=== PATIENT | female | born 1985 | race Caucasian/White ===

== ENCOUNTER 2016-12-03 12:57 | Emergency (ER) | payer BC ==
[2016-12-03 13:26] LABS: Urine Bilirubin Negative (NEGATIVE); Urine Blood Negative /ul (NEGATIVE); Urine Ketone Negative (NEGATIVE); Urine Nitrite Negative (NEGATIVE); Urine Protein Negative (NEGATIVE); Urine Specific Gravity 1.015 SP.GR. (1.005-1.010); Urine Urobilinogen Normal (NORMAL)
[2016-12-03 13:37] LABS: Hematocrit 37.9 % (37.0-47.0); Hemoglobin 12.5 gm/dL (12.5-16.0); Mean Cell Volume 93.8 fl (78-100); Mean Corpuscular Hemoglobin 30.9 pg (27-31); Mean Platelet Volume 9.3 fl (6.0-9.5); Neutrophil # 4.1 K/mm3 (1.3-6.0); Neutrophil % 58.2 % (42-75.0); Platelet Count 375 K/mm3 (150-450); Red Blood Count 4.04 M/mm3 (4.2-5.4); Red Cell Distribution Width 13.8 % (11.5-14.0); White Blood Count 7.1 K/mm3 (4.0-10.5)
[2016-12-03 13:42] LABS: Albumin * 3.9 gm/dl (3.4-5.0); Anion Gap 10.7 mmol/L (6.8-13.8); BUN/Creatinine Ratio 14.1 (9.0-21.6); Bilirubin, Total 0.4 mg/dL (0.0-1.1); Ca. Corrected For Albumin 8.8 mg/dL (8.4-10.2); Potassium 3.7 mmol/L (3.4-4.6); Total Protein 7.4 gm/dL (6.2-8.2)
[2016-12-03 13:43] LABS: Urine Appearance Clear; Urine Bacteria None Seen; Urine Color Yellow; Urine RBC None Seen /hpf (0-5); Urine WBC None Seen /hpf (0-5)
[2016-12-03] MEDS ORDERED: KETOROLAC TROMETHAMINE 30 MG/ML VIAL IV ONE (13:58)
[2016-12-03] MEDS ORDERED: DIATRIZOATE MEGLU/DIATRIZO SOD 30 ML BTL PO ONE (13:58)
[2016-12-03] MEDS ORDERED: ONDANSETRON HCL/PF 2 MG/ML VIAL IV ONE (13:58)
--- NOTE | 2016-12-03 14:01 | ERNOTE ---
Abdominal HPI - General Chief Complaint: Abdominal Pain Time Seen by Provider: 12/03/16 13:47 Source: patient Exam Limitations: no limitations - Immun/Allergies/Home Medications Immunizatons: IMMUNIZATION HX Immunizations Up to Date Yes Allergies/Adverse Reactions: Allergies No Known Allergies Allergy (Verified 12/03/16 13:08) Home Medications: HOME MEDICATIONS HYDROcodone/ACETAMINOPHEN [[place] 5-325] 1 tab PO Q4H PRN #20 tab 12/03/16 [Last Taken Unknown] - History of Present Illness Narrative: Patient was well till 20:00 yesterday when she started to have sudden severe abdominal pain. She was seen in [facility] ER, had labs and a Xray day and was discharged. The pain has not subsided and she is here for a second opinion. she has been nauseated and gagging but has not brought anything up, normal BM daily , no vaginal or urinary symptoms, same sexual partner for eight years, LMP 11/19 shorter and heavier Date (Duration): 12/02/16 Time (Timing): 20:00 Timing: constant Quality: moderate, aching Activities at Onset: none Modifying Factors - (Worsens): Present: breathing, coughing, movement Associated Symptoms: Present: nausea Prior Treatment: Present: recently seen. Absent: currently on antibiotics Review of Systems - Review of Systems Constitutional: Absent: recent illness, fever, chills ENT: Absent: nose congestion, sore throat Respiratory: Absent: shortness of breath Cardiology: Absent: chest pain Gastrointestinal/Abdominal: Present: See HPI Genitourinary: Present: no symptoms reported Musculoskeletal: Present: back pain - low back pain Neurological: Absent: headache - Patient's Past Medical History Patient History - Medical: No pertinent hx Patient History - Cardiac/Respiratory: No pertinent hx Patient History - Cancer: No Hx of Cancer Patient History - Surgical Procedures: No surgical history Patient History - Other: None LMP (females 10-50): other - Social History Living Situations: spouse Psych History: No pertinent hx Smoking Status: Current every day smoker Alcohol Use: none Drug Use: none - Immunizations Immunizations Up to Date: Yes Physical Exam - Physical Exam General Appearance: Present: wd/wn, alert, no apparent distress, anxious Ears, Nose, Throat: Present: other - poor dentition Respiratory: Present: no respiratory distress, normal breath sounds, no accessory muscle use, chest nontender, lungs clear Cardiovascular/Chest: Present: regular rate, rhythm, no murmur Gastrointestinal/Abdominal: Present: normal bowel sounds, nondistended, soft, tenderness - right lower quadrant and upper abdomen across. Absent: guarding, rebound Back Exam: Present: normal inspection Extremity Exam: Present: no edema Neurological Exam: Present: alert, oriented, normal mood/affect Skin Exam: Present: normal color, warm/dry ED Progress - Results and Orders Patient's Lab Results:: I have reviewed the patient's lab results. - Vital Signs Patient's Vital Signs:: I have reviewed the patient's vital signs. Vital Signs: Vital Signs 12/03/16 13:02 Temperature 37.2 C Pulse Rate 84 Respiratory 18 Rate Blood Pressure 106/77 O2 Sat by Pulse 99 Oximetry - CT/Ultrasound CT/Ultrasound Narrative: CT abdomen/pelvis:normal appendix, right sided ovarian cyst - Progress/Reassessment Chief Complaint: Abdominal Pain Progress Note-Subjective: 12/03/16 14:32 reviewed chart from [facility] 12/03/16 15:04 pain better after toradol, tolerating po contrast 12/03/16 16:42 pain not resolved but tolerable Departure - Departure Clinical Impression: Ovarian cyst Disposition: Home self-care Condition: Good Instructions: Ovarian Cyst, [id number] Additional Instructions: call your doctor back home for follow up Prescriptions: HYDROcodone/ACETAMINOPHEN [[place] 5-325] 1 tab PO Q4H PRN #20 tab PRN Reason: Pain
[2016-12-03] MEDS ORDERED: DIATRIZOATE MEGLU/DIATRIZO SOD 30 ML BTL ONE (14:03)
[2016-12-03] MEDS ORDERED: KETOROLAC TROMETHAMINE 30 MG/ML VIAL ONE (14:13)
[2016-12-03] MEDS ORDERED: ONDANSETRON HCL/PF 2 MG/ML VIAL ONE (14:13)
[2016-12-03 16:46] VITALS: BP 109/70
== END 2016-12-03 17:02 | disposition home or self-care (01) ==
LOC: ER 12:57
DX: N83.201 Unspecified ovarian cyst, right side (principal); F17.200 Nicotine dependence, unspecified, uncomplicated
CPT/HCPCS: 36415; 74177; 80053; 81001; 82150; 83690; 84703; 85025; 96374; 96375; 99284; J2405